=== PATIENT | female | born 1925 | race Caucasian/White ===

== ENCOUNTER 2016-04-22 07:48 | Emergency (ER) | payer MEDICARE, OTHER ==
[~2016-04-22 07:48] MED LIST: AMLO2.5T PO; ASPI-973 PO; ATOR20TA65 PO; FLUT16SP NS; IPRA30SP8 NS; LEVO75TA4 PO; LORA0.5T PO; LORA10CA PO; MECL-114 PO; MELA1TAB28 PO; OMEP20CA11 PO; POLY17PO6 PO; PSYL660P17 PO; SERT20OR6 PO
[2016-04-22 07:58] VITALS: BP 193/90; PULSE 80; RESP 20; O2SAT 98
--- NOTE | 2016-04-22 08:13 | ED.REPORT ---
HPI-General Illness Date of Service Apr 22, 2016 ED Provider: Pedro Gomez MD 89 year old female with a history of Chronic lymphocytic leukemia, remains in remission, CAD and stroke who presents to the ED via EMS due to nausea and vomiting since she woke up this AM. Pt was mentating normally per medics upon arrival to the patients home. She was complaining of vomiting. She was given 12.5 Phenergan and has now become confused. Now, the patient complains of pain in her R hip and knee. Per POLST- CPR with limited additional interventions. Nursing Notes Stated Complaint: NAUSEA/VOMITING Chief Complaint: Female Abdominal Pain Nursing Notes Reviewed: Yes Allergies: Coded Allergies: Contrast Media (Verified Allergy, Severe, 01/24/16) kidney failure TAPE (Verified Allergy, Mild, 01/24/16) donepezil (Verified Allergy, Mild, NAUSEA, 01/24/16) Sulfa (Sulfonamide Antibiotics) (Verified Allergy, Unknown, 01/24/16) codeine (Verified Allergy, Unknown, 01/24/16) ioversol (Verified Allergy, Unknown, 01/24/16) rosuvastatin calcium (Verified Allergy, Unknown, 01/24/16) Penicillins (Verified Adverse Reaction, Intermediate, Rash, 01/24/16) Scheduled Amlodipine (Amlodipine) 2.5 Mg Tablet 2.5 MG PO DAILY Aspirin (Aspirin) 81 Mg Tablet 81 MG PO DAILY Atorvastatin Calcium (Atorvastatin Calcium) 20 Mg Tablet 20 MG PO DAILY Ipratropium Superior (Ipratropium Superior 0.03% Nasal) 30 Ml [place] 2 SPRAY NS TID Levothyroxine (Levothyroxine) 75 Mcg Tablet 37.5 MCG PO DAILY Loratadine (Claritin) 10 Mg Capsule 10 MG PO DAILY Omeprazole (Omeprazole) 20 Mg Capsule.dr 20 MG PO DAILY Polyethylene Glycol 3350 (Miralax) 17 Gm Powd.pack 17 GM PO DAILY Sertraline HCl (Sertraline) 20 Mg/1 Ml Oral.conc 25 MG PO DAILY Scheduled PRN Fluticasone Propionate (Fluticasone Propionate Nasal) 16 Gm [place].susp 1 SPRAY NS DAILY PRN PRN allergies Lorazepam (Lorazepam) 0.5 Mg Tablet 0.25-0.5 MG PO PRN PRN PRN For Anxiety Melatonin/Pyridoxine HCl (B6) (Melatonin 3 mg Tablet) 1 Each Tablet 1 EACH PO HS PRN PRN For Insomnia Miscellaneous Medications Meclizine (Bonine) 25 Mg Tab.chew 25 MG PO Polyethylene Glycol 3350 (Miralax) 17 Gm Powd.pack 17 GM PO Psyllium Husk (Metamucil) 3.4 Gram/5.4 Gram Powder 660 GM PO General Time Seen by MD: 07:50 Chief Complaint Vomiting Hx Obtained From: Patient, EMS Unable to Obtain Hx: Mental status (Pt confusion) Arrived By: Ambulance Past Medical History Past Medical History raynaud's disease Reports: Coronary artery disease, GERD, Stroke Past Surgical History Cardiac stent Family History noncontributory Smoking History Never Smoker Social History Alcohol Use: Denies alcohol use Drug Use: Denies drug use Other Social History: Lives alone Ambulatory Status Walker Review of Systems Full Review of Systems GI: Reports: Hematochezia, Nausea, Vomiting Musculoskeletal: Reports: Joint pain Neurologic: Reports: Confusion, Dizziness, Lightheaded Physical Exam Vital Signs Vital Signs Date Time Temp Pulse Resp B/P Pulse Ox O2 Delivery O2 Flow Rate FiO2 04/22/16 07:58 36.7 80 20 193/90 98 Room Air Initial VS: Reviewed General/Constitutional: Awake, Alert Head / Eyes: Atraumatic, Normocephalic, PERRL Mouth: Positive: Mucous membranes dry (slightly) Respiratory / Chest: Breath sounds NL, Breath sounds = bilat, No respiratory distress, No rales, No rhonchi, No wheezing Cardiovascular: Heart rate NL, Regular rhythm, Heart sounds NL, No gallop, No murmurs, No rubs, Cap refill not delayed, Peripheral circulation NL Abdomen: Soft, Non-tender, No distention Back: Full range of motion, No CVA tenderness (to percussion) Lower Extremity / Pelvis / MS: Inspection NL, Full range of motion, No swelling , Non-tender (hip and knee), No erythema, No deformity (of hip or kneee. Holding hip at slight flexion. ), Neurologic intact, Vascular intact (Nl DP/PT pulses) Skin: No rash, Warm, Dry Rectum / Perineum: Blood - occult heme - Anal fissure without active bleeding. External hemorrhoids w/o active bleeding. Nl brown stool in the rectal vault. Neuro: Seems somewhat confused and is having difficulty answering questions but has no lateralizing neuro defecits Interpretation & Diagnostics Lab Results Interpretation Result Diagram: 04/22/16 0750 04/22/16 0750 Test 04/22/16 07:50 04/22/16 08:04 04/22/16 08:35 04/22/16 09:15 White Blood Count 7.8th/mm3 (3.8-10.1) Red Blood Count 3.62mil/mm3 (3.90-5.20) Hemoglobin 10.9g/dL (12.0-15.6) Hematocrit 33.9% (35.0-46.0) Mean Corpuscular Volume 93.6fL (81-100) Mean Corpuscular Hemoglobin 30.1pg (27.0-35.0) Mean Corpuscular Hemoglobin Concent 32.2% (32.0-37.0) Red Cell Distribution Width 12.8% (12.3-15.4) Platelet Count 252bil/L (150-400) Neutrophils (%) (Auto) 42.0% (40-74) Lymphocytes (%) (Auto) 48.3% (14-46) Monocytes (%) (Auto) 6.6% (4-12) Eosinophils (%) (Auto) 2.2% (0-5) Basophils (%) (Auto) 0.3% (0-3) Sodium Level 140mEq/L (134-144) Potassium Level 3.3mEq/L (3.5-5.2) Chloride Level 101mEq/L (97-108) Carbon Dioxide Level 23mmol/L (18-29) Blood Urea Nitrogen 16mg/dL (8-27) Creatinine 0.71mg/dL (0.57-1.00) Estimat Glomerular Filtration Rate 111mL/min (>59) Glucose Level 125mg/dL (60-99) Calcium Level 9.2mg/dL (8.5-10.1) Magnesium Level 2.2mg/dL (1.6-2.6) Total Bilirubin 0.2mg/dL (0.0-1.2) Aspartate Amino Transf (AST/SGOT) 23U/L (0-50) Alanine Aminotransferase (ALT/SGPT) 11U/L (0-32) Alkaline Phosphatase 51U/L (25-165) Total Protein 7.2g/dL (6.4-8.4) Albumin 4.2g/dL (3.4-5.0) Lipase 48U/L (13-60) Urine Color Straw (YELLOW) Urine Appearance Clear (CLEAR,HAZY) Urine pH 7.5 (5.0-8.0) Urine Specific [place] 1.008 (1.003-1.035) Urine Protein Tracemg/dL (NEG,TRACE) Urine Glucose (UA) Negativemg/dL (NEGATIVE) Urine Ketones Negativemg/dL (NEGATIVE) Urine Occult Blood Negative (NEGATIVE) Urine Nitrite Negative (NEGATIVE) Urine Bilirubin Negative (NEGATIVE) Urine Urobilinogen Normalmg/dL (NORMAL) Urine Leukocyte Esterase Negative (NEGATIVE) Urine RBC 0-2/hpf (0-2) Urine WBC 0-5/hpf (0-5) Urine Epithelial Cells None/hpf (NONE-MOD) Urine Crystals None seen (NONE SEEN) Urine Bacteria None/hpf (NONE-FEW) Urine Hyaline Casts None/lpf (NONE) Urine Granular Casts None seen (NONE SEEN) Urine Waxy Casts None seen (NONE SEEN) Urine Red Blood Cell Casts None seen (NONE SEEN) Urine White Blood Cell Casts None seen (NONE SEEN) Urine Mucus None seen (None Seen) Urine Trichomonas None seen (NONE SEEN) Urine Yeast None (NONE SEEN) Urinalysis Comment None Urine Culture Reflexed Not indicated Lactic Acid Level 1.5mmol/L (0.4-2.0) General Lab Results Interp 1: Labs reviewed X-Ray Interpretation Xray Interpretation: IMPRESSION: No fracture or dislocation. If clinical symptoms persist or clinical suspicion for pathology is high, a repeat examination in 7-10 days, or advanced imaging such as CT or MRI is suggested for further evaluation. Dictated by: Man Aguilera M.D. on 04/22/2016 at 9:49 X-Ray Ordered: Hip right Interpretation / Wet Read by: Interpret - Radiologist CT Abd / Pelvis Interpretation IMPRESSION: Limited examination due to due lack of IV and oral contrast. The patient has history of allergy to intravenous contrast. She was unable to drink oral contrast prior to CT scan. 1. A large amount of stool in colon suggesting constipation/fecal impaction. No evidence for small bowel obstruction. 2. Extensive atherosclerosis. 3. Fullness of the pancreatic head, unchanged from 11/06/2013 4. Small hiatal hernia. Dictated by: Man Aguilera M.D. on 04/22/2016 at 9:22 Study type: Abdominal CT no contrast Interpretation / Wet Read by: Interpret - Radiologist Re-Eval/Medical Decision Med Decision/Clinical Course In summary, the patient is an 89-year-old female with a history of CLL, in remission who initially presents to the emergency department quite confused after receiving 12.5 mg of Phenergan by EMS. Upon initial arrival history is extremely limited due to the patient's confusion and she only states she is having some pain in her right hip. Per EMS report however she was complaining of nausea and vomiting. Later in the patient's ED course her son arrived and was able to provide additional history, furthermore the patient returned to her baseline mental status after about one hour here in the emergency department and was able to provide additional history that she has had very firm stools, constipation and difficulty with bowel movements in her lower abdomen as well as right hip. She stated that she has had to bear down to have bowel movements causing pain with bowel movements and bright red blood streaking on the outside of her stool. Abdominal examination was quite benign as was examination of her hip. Rectal examination revealed an anal fissure though normal brown stool in the rectal vault was guaiac negative. The patient was treated with: IV fluids, Zofran, Fleet's enema. Laboratory studies notable as below: No Leukocytosis Hct 33.9 Mildly hypokalemic with K+ 3.3 CMP unremarkable Lactate WNL Lipase WNL UA unremarkable Abdominal CT : 1. A large amount of stool in colon suggesting constipation/ fecal impaction. No evidence for small bowel obstruction. 2. Extensive atherosclerosis. 3. Fullness of the pancreatic head, unchanged from 11/06/2013 4. Small hiatal hernia. Hip X-ray: No fracture or dislocation. Initial presentation was quite vague though upon further history. The patient' s presentation is related to constipation. At this time I see no evidence of acute surgical intra-abdominal process. After receiving mineral oil enema patient had a bowel movement. Serial abdominal examinations remained benign. She was able to tolerate PO. She has been prescribed MiraLAX for constipation and Zofran. She will follow up with her primary care physician. At this time I feel that she is appropriate for discharge home. She is accompanied by her son. They verbalized understanding and agreement with the plan and she was discharged in stable condition. Time of Eval: 09:27 Re-Evaluation/Progress Note: Pt's son is now at bedside. Pt now states that she felt lightheaded and had a near syncopal episode while at home. Pt denies head trauma. She also complains of dizziness. Additionally, she reported to a nurse that she has had bloody BM's for 1.5 months after passing hard stools. She describes this as blood on the outside of the stool. Rectal exam performed. See exam. They agree with plan for CT abd. Time of Eval: 10:06 Re-Evaluation/Progress Note: Pt and son updated of results. Discussed plan for enema, discharge and follow up. All questions addressed. Counseled Regarding: Diagnosis, Lab results, Need for follow-up, When/why to return to ED Discharge & Departure Primary Impression: Constipation Constipation type: unspecified constipation type Qualified Code: K59.00 - Constipation, unspecified Additional Impressions: Nausea and vomiting Vomiting type: unspecified Vomiting Intractability: unspecified Qualified Code: R11.2 - Nausea with vomiting, unspecified Altered mental status Altered mental status type: unspecified Qualified Code: R41.82 - Altered mental status, unspecified Hypokalemia Rectal bleeding Anal fissure History of chronic lymphocytic leukemia Disposition: ADMITTED TO HOSPITAL Discharge Condition All VS Reviewed: Yes Additional Instructions: Thank you for seeking care at [facility] emergency room. It is difficult for us to make definitive diagnoses in the ED but we believe that you are experiencing constipation. Our primary goal today in the ED was to evaluate you for any life-threatening conditions. Your evaluation was reassuring. You were given an enema in the ER today. You will be discharged with a prescription for Miralax.I want you to take this daily to prevent this from happening in the future. You should follow-up with your primary doctor in the next week. You should return to the ED immediately if you develop worsening pain, bloody stools, fevers, vomiting, cough, shortness of breath, chest pain, lightheadedness, weakness or any other concerning signs or symptoms. Thank you for letting us partake in your care today. Referrals: Leonard Field MD (PCP) Scribe Attestation Portions of this note were transcribed by Sil Diaz. I, (Dr. Gomez) personally performed the history, physical exam and medical decision-making; I reviewed and confirmed the accuracy of the information in the transcribed note. Signed by: Sil Diaz. Sorin, 04/22/2016, 1010 copies to: Leonard Field MD, Beck O MD Apr 22, 2016 08:13 Sil Diaz Apr 22, 2016 08:24
[2016-04-22] MEDS ORDERED: 0.9% Sodium Chloride 1,000 ML IV ONE (08:24)
[2016-04-22] MEDS ORDERED: Ondansetron 2 mg/mL 2 mL Inj IVPUSH ONE (08:25)
[2016-04-22 08:30] VITALS: BP 187/60; PULSE 80; RESP 19; O2SAT 98
[2016-04-22 08:40] LABS: BASOPHILS % (AUTO) 0.3 % (0-3); EOSINOPHILS % (AUTO) 2.2 % (0-5); MONOCYTES % (AUTO) 6.6 % (4-12); Mean Corpuscular Hemoglobin 30.1 pg (27.0-35.0); Mean Corpuscular Volume 93.6 fL (81-100); Platelet Count 252 bil/L (150-400)
[2016-04-22 09:09] LABS: Magnesium 2.2 mg/dL (1.6-2.6)
[2016-04-22 09:30] VITALS: PULSE 73; RESP 21; O2SAT 98
--- NOTE | 2016-04-22 09:36 | DRSVH ---
PROCEDURE: CT ABDOMEN AND PELVIS WITHOUT CONTRAST ([id number]) INDICATIONS: 89 year-old woman with abdominal pain. TECHNIQUE: Noncontrast 5 mm thick sections acquired from the diaphragms to the symphysis. 5 mm coronal and sagi ttal reformats were then performed. For radiation dose reduction, the following was used: automated exposure control, adjustment of mA and/or kV according to patient size. COMPARISON: [facility], CT, CT PELVIS WO CON, 04/17/2015, 5:55. [facility], CT, KUB - CT (PN), 11/06/2013, 23:00. [facility], CT, ABD/PELVIS W/O CON (PNL), 9, 6:42. FINDINGS: Image quality: Limited examination due to lack of oral and IV contrast, as well as motion artifact. ABDOMEN: Lung bases: Lung bases are clear. Heart size is normal. There is a small hiatal hernia. Solid organs: Liver and spleen are normal in size. Gallbladder is normal. Pancreas head appears pr ominent but unchanged. No adrenal nodules. Kidneys are normal in size, without hydronephrosis or ne phrolithiasis. Peritoneum and bowel: Unenhanced bowel loops demonstrate normal wall thickness and caliber. There i s a large amount of stool in colon. No free fluid or air. Nodes and vessels: Slightly prominent but normal sized retroperitoneal and mesenteric lymph nodes are noted, decreased in size compared to 06/12/2008. Aorta and inferior vena cava are normal in caliber. Severe vascular calcification consistent with atherosclerosis. Miscellaneous: No ventral hernias. PELVIS: Genitourinary: Bladder wall thickness is normal. Uterus is atrophic. No adnexal mass. No pathologic al free fluid. Miscellaneous: No inguinal hernias or adenopathy. Bones: No suspicious bony lesions. No vertebral body compression fractures. Degenerative changes i n lumbar spine. IMPRESSION: Limited examination due to due lack of IV and oral contrast. The patient has history of allergy to intravenous contrast. She was unable to drink oral contrast prior to CT scan. 1. A large amount of stool in colon suggesting constipation/fecal impaction. No evidence for small edouard wel obstruction. 2. Extensive atherosclerosis. 3. Fullness of the pancreatic head, unchanged from 11/06/2013 4. Small hiatal hernia. Dictated by: Man Aguilera M.D. on 04/22/2016 at 9:22 Approved by: Man Aguilera M.D. on 04/22/2016 at 9:35
--- NOTE | 2016-04-22 09:52 | DRSVH ---
PROCEDURE: X-RAY RIGHT HIP COMPLETE, MINIMUM TWO VIEWS ([id number]) INDICATIONS: Right hip pain. TECHNIQUE: 2 view(s) of the right hip(s). COMPARISON: [facility], CR, XR HIP 2VW RT, 12/08/2015, 17:04. FINDINGS: Bones: No fractures or dislocations. Pelvic ring appears intact. No suspicious bony lesions. Mild degenerative joint disease of the right hip and sacroiliac joint. Soft tissues: The visualized bowel gas pattern is normal. No suspicious soft tissue calcifications. IMPRESSION: No fracture or dislocation. If clinical symptoms persist or clinical suspicion for pathol ogy is high, a repeat examination in 7-10 days, or advanced imaging such as CT or MRI is suggested fo r further evaluation. Dictated by: Man Aguilera M.D. on 04/22/2016 at 9:49 Approved by: Man Aguilera M.D. on 04/22/2016 at 9:51
[2016-04-22 09:59] LABS: APPEARANCE,URINE CLEAR (CLEAR,HAZY); COLOR,URINE STRAW (YELLOW); OCCULT BLOOD,URINE NEGATIVE (NEGATIVE); PH,URINE 7.5 (5.0-8.0); UROBILINOGEN,URINE NORMAL (NORMAL)
[2016-04-22 10:00] VITALS: BP 145/51; PULSE 77; RESP 27; O2SAT 96
[2016-04-22] MEDS ORDERED: POLY17PO6 PO (10:01)
[2016-04-22] MEDS ORDERED: ONDA4TAB9 PO (10:21)
[2016-04-22 10:30] VITALS: BP 146/104; PULSE 77; RESP 23; O2SAT 97
[2016-04-22] MEDS ORDERED: 0.9% Sodium Chloride 500 ML IV ONE (11:15)
== END 2016-04-22 11:54 | disposition home or self-care (01) ==
LOC: SED 07:48
DX: K59.00 Constipation, unspecified (principal); R11.2 Nausea with vomiting, unspecified; R41.82 Altered mental status, unspecified; E87.6 Hypokalemia; K62.5 Hemorrhage of anus and rectum; K60.2 Anal fissure, unspecified; I25.10 Atherosclerotic heart disease of native coronary artery without angina pectoris; C91.11 Chronic lymphocytic leukemia of B-cell type in remission; I73.00 Raynaud's syndrome without gangrene; K21.9 Gastro-esophageal reflux disease without esophagitis; Z86.73 Personal history of transient ischemic attack (TIA), and cerebral infarction without residual deficits; Z95.5 Presence of coronary angioplasty implant and graft; Z79.82 Long term (current) use of aspirin; Z88.0 Allergy status to penicillin; Z88.2 Allergy status to sulfonamides; Z88.5 Allergy status to narcotic agent; Z88.8 Allergy status to other drugs, medicaments and biological substances
CPT/HCPCS: 36415; 73502; 74176; 80053; 81000; 83605; 83690; 83735; 85025; 96361; 96374; 99285; J2405; J7030; J7040

== ENCOUNTER 2016-05-12 10:33 | Emergency (ER) | payer MEDICARE, OTHER ==
[~2016-05-12] VITALS: Ht 172.7 cm; Wt 65.0 kg
[~2016-05-12 10:33] MED LIST changes: +ONDA4TAB9 PO
[2016-05-12 10:51] VITALS: BP 137/57; PULSE 72; RESP 20; O2SAT 99
--- NOTE | 2016-05-12 11:04 | ED.REPORT ---
HPI-General Illness Date of Service May 12, 2016 ED Provider: Rl Sanchez MD The patient is an 89 year old female with history of Raynaud's disease, coronary artery disease, GERD, stroke, hypothyroidism who was brought to the emergency department by EMS for dizziness. This morning when she got up to use the commode she felt very dizzy and fell back onto the bed. She was eventually able to transfer herself over to the commode. She was able to get herself back to bed but does not remember this. She had a similar episode previously when she fell onto the ground. At this moment the dizziness is gone but she feels generally weak. She denies fever, chills, chest pain, shortness of breath, cough , abdominal pain, nausea, vomiting, diarrhea, dysuria or headache. Nursing Notes Stated Complaint: DIZZY Chief Complaint: General Complaint Nursing Notes Reviewed: Yes Allergies: Coded Allergies: Contrast Media (Verified Allergy, Severe, 01/24/16) kidney failure TAPE (Verified Allergy, Mild, 01/24/16) donepezil (Verified Allergy, Mild, NAUSEA, 01/24/16) Sulfa (Sulfonamide Antibiotics) (Verified Allergy, Unknown, 01/24/16) codeine (Verified Allergy, Unknown, 01/24/16) ioversol (Verified Allergy, Unknown, 01/24/16) rosuvastatin calcium (Verified Allergy, Unknown, 01/24/16) Penicillins (Verified Adverse Reaction, Intermediate, Rash, 01/24/16) Scheduled Amlodipine (Amlodipine) 2.5 Mg Tablet 2.5 MG PO DAILY Aspirin (Aspirin) 81 Mg Tablet 81 MG PO DAILY Atorvastatin Calcium (Atorvastatin Calcium) 20 Mg Tablet 20 MG PO DAILY Ipratropium [place] (Ipratropium [place] 0.03% Nasal) 30 Ml [place] 2 SPRAY NS TID Levothyroxine (Levothyroxine) 75 Mcg Tablet 37.5 MCG PO DAILY Loratadine (Claritin) 10 Mg Capsule 10 MG PO DAILY Omeprazole (Omeprazole) 20 Mg Capsule.dr 20 MG PO DAILY Polyethylene Glycol 3350 (Miralax) 17 Gm Powd.pack 17 GM PO DAILY Sertraline HCl (Sertraline) 20 Mg/1 Ml Oral.conc 25 MG PO DAILY Scheduled PRN Fluticasone Propionate (Fluticasone Propionate Nasal) 16 Gm [place].susp 1 SPRAY NS DAILY PRN PRN allergies Lorazepam (Lorazepam) 0.5 Mg Tablet 0.25-0.5 MG PO PRN PRN PRN For Anxiety Melatonin/Pyridoxine HCl (B6) (Melatonin 3 mg Tablet) 1 Each Tablet 1 EACH PO HS PRN PRN For Insomnia Ondansetron ODT (Zofran ODT) 4 Mg Tablet 4 MG PO Q4H PRN PRN For Nausea Miscellaneous Medications Meclizine (Bonine) 25 Mg Tab.chew 25 MG PO Polyethylene Glycol 3350 (Miralax) 17 Gm Powd.pack 17 GM PO Psyllium Husk (Metamucil) 3.4 Gram/5.4 Gram Powder 660 GM PO General Time Seen by MD: 11:03 Chief Complaint Dizziness Hx Obtained From: Patient, EMS Arrived By: Ambulance Sudden in Onset?: No Onset Occurred: 1 - 4 hours ago Symptom Duration: Since onset Severity: Current: No pain currently Severity: Maximum: No pain Exacerbated by: Standing up Recent Healthcare: No recent doctor visit, No recent hospitalization Similar Sx Previous: Yes Past Medical History Past Medical History Raynaud's disease Hypothyroidism Reports: Coronary artery disease, GERD, Stroke Past Surgical History Cardiac stent Family History noncontributory Smoking History Never Smoker Social History She has help with cooking and cleaning. Alcohol Use: Denies alcohol use Drug Use: Denies drug use Other Social History: Lives in [facility], Local resident Ambulatory Status Walker Review of Systems Full Review of Systems Constitutional: Reports: Weakness - generalized, Denies: Chills, Fever Respiratory: Denies: Non-productive cough, Shortness of breath Cardiovascular: Denies: Chest pain GI: Denies: Abdominal pain, Diarrhea, Nausea, Vomiting Female: Denies: Dysuria Musculoskeletal: Reports: Myalgia Neurologic: Reports: Dizziness, Spinning sensation, Weakness, Denies: Headache Complete sys rev & neg: except as marked. Physical Exam Vital Signs Vital Signs Date Time Temp Pulse Resp B/P Pulse Ox O2 Delivery O2 Flow Rate FiO2 05/12/16 12:40 80 24 120/76 99 05/12/16 12:35 68 21 111/45 99 05/12/16 10:51 36.7 72 20 137/57 99 Room Air Initial VS: Reviewed Head / Eyes: Atraumatic, Normocephalic, PERRL ENT: Mucous membranes moist, Conjunctiva normal, No scleral icterus Neck: Supple, Non-tender, Full range of motion Lymphatic: No lymphadenopathy Extremities: Vascular intact, Neuro intact, No swelling, No tenderness Skin: Warm, Dry, No cyanosis Psychiatric: Mood/affect normal, Behavior normal, Normal thought content General/Constitutional: Awake, Alert, No acute distress, Cooperative Respiratory / Chest: Atraumatic, Breath sounds NL, Breath sounds = bilat, No respiratory distress, No rales, No rhonchi, No wheezing Cardiovascular: Heart rate NL, Regular rhythm, Heart sounds NL, No gallop, No murmurs, No rubs, Cap refill not delayed, Peripheral circulation NL Abdomen: Atraumatic, Soft, Non-tender, No guarding, No rebound, BS normoactive , No distention, No hernia, No palpable mass, No pulsatile mass Lower Extremity / Pelvis / MS: Neurologic intact, Vascular intact, No edema Neurologic: Speech NL, No motor deficits, No sensory deficits, CN II - XII intact, Cerebellar NL, Memory NL Interpretation & Diagnostics Lab Results Interpretation Result Diagram: 05/12/16 1215 05/12/16 1215 Test 05/12/16 12:15 05/12/16 13:01 White Blood Count 4.3th/mm3 (3.8-10.1) Red Blood Count 3.29mil/mm3 (3.90-5.20) Hemoglobin 9.7g/dL (12.0-15.6) Hematocrit 30.4% (35.0-46.0) Mean Corpuscular Volume 92.4fL (81-100) Mean Corpuscular Hemoglobin 29.5pg (27.0-35.0) Mean Corpuscular Hemoglobin Concent 31.9% (32.0-37.0) Red Cell Distribution Width 12.1% (12.3-15.4) Platelet Count 173bil/L (150-400) Neutrophils (%) (Auto) 77.0% (40-74) Lymphocytes (%) (Auto) 14.5% (14-46) Monocytes (%) (Auto) 6.2% (4-12) Eosinophils (%) (Auto) 1.4% (0-5) Basophils (%) (Auto) 0.7% (0-3) Sodium Level 141mEq/L (134-144) Potassium Level 4.1mEq/L (3.5-5.2) Chloride Level 103mEq/L (97-108) Carbon Dioxide Level 25mmol/L (18-29) Blood Urea Nitrogen 20mg/dL (8-27) Creatinine 0.75mg/dL (0.57-1.00) Estimat Glomerular Filtration Rate 104mL/min (>59) Glucose Level 112mg/dL (60-99) Calcium Level 8.5mg/dL (8.5-10.1) Magnesium Level 2.2mg/dL (1.6-2.6) Total Bilirubin < 0.2mg/dL (0.0-1.2) Aspartate Amino Transf (AST/SGOT) 18U/L (0-50) Alanine Aminotransferase (ALT/SGPT) 11U/L (0-32) Alkaline Phosphatase 46U/L (25-165) Troponin T < 0.010ug/L (0.0-0.011) Total Protein 5.7g/dL (6.4-8.4) Albumin 3.6g/dL (3.4-5.0) Hold [place] Top Tube Received (Received) Urine Color Straw (YELLOW) Urine Appearance Hazy (CLEAR,HAZY) Urine pH 8.0 (5.0-8.0) Urine Specific [place] 1.015 (1.003-1.035) Urine Protein Negativemg/dL (NEG,TRACE) Urine Glucose (UA) Negativemg/dL (NEGATIVE) Urine Ketones Negativemg/dL (NEGATIVE) Urine Occult Blood Negative (NEGATIVE) Urine Nitrite Negative (NEGATIVE) Urine Bilirubin Negative (NEGATIVE) Urine Urobilinogen Normalmg/dL (NORMAL) Urine Leukocyte Esterase Negative (NEGATIVE) Urine RBC 0-2/hpf (0-2) Urine WBC 0-5/hpf (0-5) Urine Epithelial Cells Occasional/hpf (NONE-MOD) Urine Crystals None seen (NONE SEEN) Urine Bacteria Few/hpf (NONE-FEW) Urine Hyaline Casts None/lpf (NONE) Urine Granular Casts None seen (NONE SEEN) Urine Waxy Casts None seen (NONE SEEN) Urine Red Blood Cell Casts None seen (NONE SEEN) Urine White Blood Cell Casts None seen (NONE SEEN) Urine Mucus None seen (None Seen) Urine Trichomonas None seen (NONE SEEN) Urine Yeast None (NONE SEEN) Urinalysis Comment None Urine Culture Reflexed Not indicated ECG Interpretation ECG Interpretation: Sinus rhythm with a rate of 69 Time: 12:01 Interpreted by: ED physician X-Ray Chest Interpretation Chest Xray Interpretation: IMPRESSION: Mild patchy retrocardiac opacities possibly atelectasis/aspiration versus early pneumonia. Recommend clinical correlation Background chronic diffuse/interstitial changes. Dictated by: Sergio Rodriguez M.D. on 05/12/2016 at 12:13 Interpretation / Wet Read by: Interpret - Radiologist Re-Eval/Medical Decision Med Decision/Clinical Course Despite this woman somewhat concerning presentation and complaint of near syncope, her examination, orthostatics, labs and x-ray and every evaluation point are reassuring. I think it is safe to go home and follow-up as an outpatient. 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 All questions were addressed. Counseled Regarding: Diagnosis, Lab results, Need for follow-up, When/why to return to ED Discharge & Departure Primary Impression: Near syncope Disposition: Home Discharge Condition All VS Reviewed: Yes Condition: Stable Patient Instructions: Syncope (ED) Additional Instructions: No dangerous cause for your symptoms was discovered today. Follow-up with your doctor next week if your symptoms persist. Referrals: Leonard Field MD (PCP) Scribe Attestation Portions of this note were transcribed by Ayesha Iyer. I, Dr. Sanchez personally performed the history, physical exam and medical decision-making; I reviewed and confirmed the accuracy of the information in the transcribed note. Signed by: Sorin Padilla, 05/12/2016 at 1400. copies to: Leonard Field MD, Kirk H MD May 12, 2016 11:04 Ayesha Iyer May 12, 2016 11:14
--- NOTE | 2016-05-12 12:16 | DRSVH ---
PROCEDURE: X-RAY CHEST ONE VIEW, PORTABLE ([id number]) INDICATIONS: near syncope TECHNIQUE: One view of the chest was acquired. COMPARISON: [facility], , CHEST 1VW (PORTABLE), 06/19/2014, 13:17. FINDINGS: Surgical changes and devices: None. Lungs and pleura: No pleural effusions or pneumothorax. Diffuse scarring and interstitial changes as before. Mild patchy retrocardiac opacities Mediastinum: Mediastinal contours appear normal. Heart size is normal. Bones and chest wall: No suspicious bony lesions. Overlying soft tissues appear unremarkable. IMPRESSION: Mild patchy retrocardiac opacities possibly atelectasis/aspiration versus early pneumonia . Recommend clinical correlation Background chronic diffuse/interstitial changes. Dictated by: Sergio Rodriguez M.D. on 05/12/2016 at 12:13 Approved by: Sergio Rodriguez M.D. on 05/12/2016 at 12:14
[2016-05-12 12:32] LABS: BASOPHILS % (AUTO) 0.7 % (0-3); EOSINOPHILS % (AUTO) 1.4 % (0-5); MONOCYTES % (AUTO) 6.2 % (4-12); Mean Corpuscular Hemoglobin 29.5 pg (27.0-35.0); Mean Corpuscular Volume 92.4 fL (81-100); Platelet Count 173 bil/L (150-400)
[2016-05-12 12:35] VITALS: BP 111/45; PULSE 68; RESP 21; O2SAT 99
[2016-05-12 12:40] VITALS: BP 120/76; PULSE 80; RESP 24; O2SAT 99
[2016-05-12 13:08] LABS: APPEARANCE,URINE HAZY (CLEAR,HAZY); COLOR,URINE STRAW (YELLOW); OCCULT BLOOD,URINE NEGATIVE (NEGATIVE); UROBILINOGEN,URINE NORMAL (NORMAL)
[2016-05-12 13:26] LABS: Magnesium 2.2 mg/dL (1.6-2.6); TROPONIN T < 0.010 ug/L (0.0-0.011)
[2016-05-12 15:31] VITALS: BP 112/77
== END 2016-05-12 15:55 | disposition home or self-care (01) ==
LOC: EDUNIT# 10:33 → EDBD 10:33 → SED 10:33
DX: R55 Syncope and collapse (principal); K21.9 Gastro-esophageal reflux disease without esophagitis; I25.10 Atherosclerotic heart disease of native coronary artery without angina pectoris; Z86.73 Personal history of transient ischemic attack (TIA), and cerebral infarction without residual deficits; Z79.82 Long term (current) use of aspirin; Z88.0 Allergy status to penicillin; Z88.2 Allergy status to sulfonamides; Z88.5 Allergy status to narcotic agent; Z88.8 Allergy status to other drugs, medicaments and biological substances; Z91.041 Radiographic dye allergy status; Z86.79 Personal history of other diseases of the circulatory system

== ENCOUNTER 2016-05-15 10:01 | Emergency (ER) | payer MEDICARE, OTHER ==
[2016-05-15 10:16] VITALS: BP 159/44; PULSE 66; RESP 16; O2SAT 100
[2016-05-15 11:05] LABS: BASOPHILS % (AUTO) 0.5 % (0-3); EOSINOPHILS % (AUTO) 1.9 % (0-5); MONOCYTES % (AUTO) 7.2 % (4-12); Mean Corpuscular Hemoglobin 30.1 pg (27.0-35.0); Mean Corpuscular Volume 91.2 fL (81-100); Platelet Count 190 bil/L (150-400)
[2016-05-15 11:32] VITALS: BP_SYST 128; BP_SYST 129; BP_SYST 134; BP_DIAS 51; BP_DIAS 56; BP_DIAS 63; PULSE 62; PULSE 68; PULSE 76; RESP 19; RESP 21; RESP 24; O2SAT 100
--- NOTE | 2016-05-15 11:39 | DRSVH ---
PROCEDURE: X-RAY CHEST ONE VIEW, PORTABLE ([id number]) INDICATIONS: syncope TECHNIQUE: One view of the chest was acquired. COMPARISON: [facility], CR, XR CHEST 1VW (PORTABLE), 05/12/2016, 11:32. FINDINGS: Surgical changes and devices: None. Lungs and pleura: No pleural effusions or pneumothorax. Lungs are clear. Mediastinum: Mediastinal contours appear normal. Heart size is normal. Bones and chest wall: No suspicious bony lesions. Overlying soft tissues appear unremarkable. IMPRESSION: 1. No acute cardiopulmonary disease. Dictated by: Talib Leon M.D. on 05/15/2016 at 11:33 Approved by: Talib Leon M.D. on 05/15/2016 at 11:38
--- NOTE | 2016-05-15 11:52 | ED.REPORT ---
HPI-Dizziness / Weakness Date of Service May 15, 2016 ED Provider: Calderon Kennedy DO History of Present Illness: The patient is an 89 year old female with history of Raynaud's disease, coronary artery disease, GERD, stroke, hypothyroidism who was brought to the emergency department by EMS for dizziness. Dizziness that began this morning when patient stood up to use her bedside comode. Patient noted that she had to lay back down, patient tried to stand back up but couldn't stay up due to dizzines. Denies vomiting, headache, vomiting, shortness of breath, loss of consciousness. Now patient stated that she is feeling better. Nursing Notes Stated Complaint: DIZZY Chief Complaint: General Complaint Allergies: Coded Allergies: Contrast Media (Verified Allergy, Severe, 01/24/16) kidney failure TAPE (Verified Allergy, Mild, 01/24/16) donepezil (Verified Allergy, Mild, NAUSEA, 01/24/16) Sulfa (Sulfonamide Antibiotics) (Verified Allergy, Unknown, 01/24/16) codeine (Verified Allergy, Unknown, 01/24/16) ioversol (Verified Allergy, Unknown, 01/24/16) rosuvastatin calcium (Verified Allergy, Unknown, 01/24/16) Penicillins (Verified Adverse Reaction, Intermediate, Rash, 01/24/16) Scheduled Amlodipine (Amlodipine) 2.5 Mg Tablet 2.5 MG PO DAILY Aspirin (Aspirin) 81 Mg Tablet 81 MG PO DAILY Atorvastatin Calcium (Atorvastatin Calcium) 20 Mg Tablet 20 MG PO DAILY Ipratropium [place] (Ipratropium [place] 0.03% Nasal) 30 Ml [place] 2 SPRAY NS TID Levothyroxine (Levothyroxine) 75 Mcg Tablet 37.5 MCG PO DAILY Loratadine (Claritin) 10 Mg Capsule 10 MG PO DAILY Omeprazole (Omeprazole) 20 Mg Capsule.dr 20 MG PO DAILY Polyethylene Glycol 3350 (Miralax) 17 Gm Powd.pack 17 GM PO DAILY Sertraline HCl (Sertraline) 20 Mg/1 Ml Oral.conc 25 MG PO DAILY Scheduled PRN Fluticasone Propionate (Fluticasone Propionate Nasal) 16 Gm [place].susp 1 SPRAY NS DAILY PRN PRN allergies Lorazepam (Lorazepam) 0.5 Mg Tablet 0.25-0.5 MG PO PRN PRN PRN For Anxiety Melatonin/Pyridoxine HCl (B6) (Melatonin 3 mg Tablet) 1 Each Tablet 1 EACH PO HS PRN PRN For Insomnia Ondansetron ODT (Zofran ODT) 4 Mg Tablet 4 MG PO Q4H PRN PRN For Nausea Miscellaneous Medications Meclizine (Bonine) 25 Mg Tab.chew 25 MG PO Polyethylene Glycol 3350 (Miralax) 17 Gm Powd.pack 17 GM PO Psyllium Husk (Metamucil) 3.4 Gram/5.4 Gram Powder 660 GM PO General Time Seen by MD: 10:15 Chief Complaint Dizzy Onset Occurred: 5 - 8 hours ago Past Medical History Past Medical History Raynaud's disease Hypothyroidism Reports: Coronary artery disease, GERD, Stroke Reports: Coronary artery disease, GERD, Stroke Past Surgical History Cardiac stent Family History noncontributory Smoking History Never Smoker Social History She has help with cooking and cleaning. Alcohol Use: Denies alcohol use Drug Use: Denies drug use Other Social History: Lives in [facility], Local resident Ambulatory Status Walker Review of Systems Basic Review of Systems : No dysuria, No frequency Constitutional: Reports: Weakness - generalized, Denies: Chills, Fever Eyes: Denies: Blurred bilateral Respiratory: Denies: Dyspnea on exertion, Parox nocturnal dyspnea, Pleuritic pain Cardiovascular: Denies: Chest pain, Dyspnea on exertion, Orthopnea, Parox nocturnal dyspnea, Syncope GI: Denies: Abdominal pain, Constipation, Diarrhea, Nausea, Vomiting Neurologic: Reports: Dizziness, Lightheaded, Denies: Abnormal movement, Bladder dysfunction, Change LOC, Confusion, Syncope, Unable to speak, Vision change, Weakness Complete sys rev & neg: except as marked. Physical Exam Initial Vital Signs Vital Signs (First) Date Time Temp Pulse Resp B/P Pulse Ox O2 Delivery O2 Flow Rate FiO2 05/15/16 10:16 36.9 66 16 159/44 100 Room Air Initial VS: Reviewed ENT: Mucous membranes moist, Conjunctiva normal, No scleral icterus Neck: Supple, Non-tender, Full range of motion Abdomen / GI: Soft, Non-tender, No guarding, No rebound, No distention Back: No CVA tenderness Lymphatic: No lymphadenopathy Extremities: Vascular intact, Neuro intact, No swelling, No tenderness Skin: Warm, Dry, No cyanosis Psychiatric: Mood/affect normal, Behavior normal, Normal thought content Head / Eyes: Normocephalic, PERRL, No nystagmus, Conjunctiva NL Respiratory / Chest: Breath sounds NL, Breath sounds = bilat, No respiratory distress, No rales, No rhonchi, No wheezing Cardiovascular: Heart rate NL, Regular rhythm, Heart sounds NL, No murmurs, Cap refill not delayed, Peripheral circulation NL Neurologic: Speech NL, No motor deficits, No sensory deficits, Cerebellar NL Mental Status: Positive: Disoriented to time Cranial Nerve Deficit: Positive: 7 - lower/asymetric smile Interpretation & Diagnostics Lab Results Interpretation Result Diagram: 05/15/16 1051 05/15/16 1051 Test 05/15/16 10:51 White Blood Count 3.7th/mm3 (3.8-10.1) Red Blood Count 3.52mil/mm3 (3.90-5.20) Hemoglobin 10.6g/dL (12.0-15.6) Hematocrit 32.1% (35.0-46.0) Mean Corpuscular Volume 91.2fL (81-100) Mean Corpuscular Hemoglobin 30.1pg (27.0-35.0) Mean Corpuscular Hemoglobin Concent 33.0% (32.0-37.0) Red Cell Distribution Width 12.2% (12.3-15.4) Platelet Count 190bil/L (150-400) Neutrophils (%) (Auto) 69.0% (40-74) Lymphocytes (%) (Auto) 21.1% (14-46) Monocytes (%) (Auto) 7.2% (4-12) Eosinophils (%) (Auto) 1.9% (0-5) Basophils (%) (Auto) 0.5% (0-3) Sodium Level 139mEq/L (134-144) Potassium Level 3.9mEq/L (3.5-5.2) Chloride Level 103mEq/L (97-108) Carbon Dioxide Level 25mmol/L (18-29) Blood Urea Nitrogen 14mg/dL (8-27) Creatinine 0.73mg/dL (0.57-1.00) Estimat Glomerular Filtration Rate 108mL/min (>59) Glucose Level 93mg/dL (60-99) Calcium Level 8.7mg/dL (8.5-10.1) Total Bilirubin 0.2mg/dL (0.0-1.2) Aspartate Amino Transf (AST/SGOT) 22U/L (0-50) Alanine Aminotransferase (ALT/SGPT) 11U/L (0-32) Alkaline Phosphatase 47U/L (25-165) Troponin T 0.010ug/L (0.0-0.011) Total Protein 5.9g/dL (6.4-8.4) Albumin 3.9g/dL (3.4-5.0) ECG Interpretation ECG Interpretation: NSR poor Rwave progression unchanged from previous EKG Time: 11:30 Interpreted by: ED physician Normal ECG Interpretation: Normal sinus rhythm Repeat ECG: Repeat ECG unchanged Re-Eval/Medical Decision Med Decision/Clinical Course 89 year old female with onset of dizziness and near syncope this morning when patient stood up to use bedside comode. Similar to previous episode 05/12/16 EKG unchanged from 05/12/16 CBC H/H stable, no sign of acute infection CMP unremarkable Troponin negative CXR negative for acute infection, unchanged from prior CXR Orthostatics normal Patient able to ambulate around ED with minimal assitance While no acute disease process is identified as the cause of dizziness, the tests conducted in ED are reassuring. Patient is stable for discharge and close follow up with outpatient to work-up causes of dizziness. 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 Attending note: I saw and personally evaluated this patient. I agree with the documentation of the resident. She is back to normal baseline, including ambulation with a walker. There does not seem to be new progressive neurologic deficits that would suggest TIA or CVA. There is no signs of this is coronary ischemia. No particular sign or symptom of pulmonary embolism. No signs of sepsis or life-threatening infection. Patient's son and caregiver at the bedside and agreed to take the patient home. There is noted in an MRI several years ago about a possible stenosis on an MR angiogram of the head and neck, the family is once again made aware of this and urged to follow-up with primary care for further evaluation of this. Source of Hx: Old records, EMS NIH Stroke Scale : Level of Consciousness: Alert and responsive (0) Ask Month & Age: Both questions right (0) Open/Close Eyes/Hand Graduate Advisor: Performs both tasks (0) Horizontal EO Movements: None (0) Visual Rizo: No visual loss (0) Facial Palsy: Minor paralysis (1) Right Arm Motor Drift (10s): No drift 10 sec (0) Left Arm Motor Drift (10s): No drift 10 sec (0) Right Leg Motor Drift (5s): No drift 5 sec (0) Left Leg Motor Drift (5s): No drift 5 sec (0) Limb Ataxia FNF/Heel-Adams: No ataxia (0) Sensation (Arms/Legs/Face): No sensory loss (0) Language Aphasia: No aphasia, normal (0) Dysarthria: No dysarthria, normal (0) Extinction/Inattention: No exctinct/inattent (0) NIHSS Score: 1 Time NIHSS Performed: 11:30 Date NIHSS Performed: May 15, 2016 Counseled Regarding: Diagnosis, Lab results, Need for follow-up Patient Discharge & Departure Impression: Primary Impression: Dizziness Additional Impressions: Near syncope Anxiety Disposition: Home Discharge Condition All VS Reviewed: Yes Condition: Stable Patient Instructions: Syncope (DC) Additional Instructions: During you visit to [facility] Emergency Department we obtained blood work for infectious markers, hemoglobin levels, and electrolytes. Chest X-Ray, no acute infection or disease was seen EKG showed no changes from your last visit and was reassuring. All your lab values were within normal limits and your imaging showed no acute processes or abnormalities. While no acute disease process is identified as the cause of dizziness, the tests conducted in ED are reassuring. Patient is stable for discharge and close follow up with outpatient to work-up causes of dizziness. Your vital signs were stable and safe for discharge. Do not hesitate to call emergency services or your primary care physician if you experience any of the following. - High unrelenting fevers. - Uncontrolled vomiting. - Severe hypertension. - Syncope or loss of consciousness. - Chest pain or severe shortness of breath. Follow up with your primary care physician in 1 weeks time following your emergency department visit for medication checks and general well-being. It has been two years since your last brain MRI, speak with your primary care doctor about follow up MRI of your neck and brain. Referrals: Leonard Field MD (PCP) Attending Statement The patient was seen and examined together with Dr. Cifuentes on 2/20/17 and I have added additional information to the note above. Leonard Field MD, AARON J DO May 15, 2016 11:01 Calderon Kennedy DO May 15, 2016 13:11
[2016-05-15 13:15] VITALS: BP 129/56; PULSE 76; RESP 24; O2SAT 100
== END 2016-05-15 12:40 | disposition home or self-care (01) ==
LOC: EDBD 10:01 → SED 10:01 → EDUNIT# 10:01 → SED 12:40
DX: R55 Syncope and collapse (principal); F41.9 Anxiety disorder, unspecified; I25.10 Atherosclerotic heart disease of native coronary artery without angina pectoris; K21.9 Gastro-esophageal reflux disease without esophagitis; Z86.73 Personal history of transient ischemic attack (TIA), and cerebral infarction without residual deficits; Z86.79 Personal history of other diseases of the circulatory system; Z86.39 Personal history of other endocrine, nutritional and metabolic disease; Z88.0 Allergy status to penicillin; Z88.1 Allergy status to other antibiotic agents; Z88.2 Allergy status to sulfonamides; Z88.5 Allergy status to narcotic agent; Z79.82 Long term (current) use of aspirin; Z91.040 Latex allergy status; Z88.8 Allergy status to other drugs, medicaments and biological substances